=== PATIENT | male | born 1965 | race Caucasian/White ===

== ENCOUNTER 2020-06-25 11:40 | Outpatient (CLI) | payer OTHER ==
[~2020-06-25 11:40] MED LIST: LIDOCAINE 1%, 10ML ONE
== END 2020-06-25 23:59 | disposition home or self-care (01) ==
LOC: RAD 11:40
PROVIDERS: ATTEND Internal Medicine Gastroenterology
DX: R18.8 Other ascites (principal); K74.60 Unspecified cirrhosis of liver; N28.9 Disorder of kidney and ureter, unspecified
CPT/HCPCS: 49083; J3490

== ENCOUNTER 2020-07-05 09:45 | Outpatient (CLI) | payer OTHER ==
[2020-07-05] MEDS ORDERED: LIDOCAINE 1%, 10ML ONE (09:48)
== END 2020-07-05 23:59 | disposition home or self-care (01) ==
LOC: RAD 09:45
PROVIDERS: ATTEND Internal Medicine Gastroenterology
DX: R18.8 Other ascites (principal); K74.60 Unspecified cirrhosis of liver; N28.9 Disorder of kidney and ureter, unspecified
CPT/HCPCS: 49083; J3490

== ENCOUNTER 2020-07-12 11:36 | Outpatient (CLI) | payer OTHER ==
[2020-07-12] MEDS ORDERED: ALBUMIN HUMAN 25%, 25GM/100ML ONE (12:02)
[2020-07-12] MEDS ORDERED: LIDOCAINE 1%, 2ML ONE (12:02)
== END 2020-07-12 23:59 | disposition home or self-care (01) ==
LOC: RAD 11:36
PROVIDERS: ATTEND Internal Medicine Gastroenterology
DX: R18.8 Other ascites (principal); K74.60 Unspecified cirrhosis of liver; N28.9 Disorder of kidney and ureter, unspecified
CPT/HCPCS: 49083; J3490; P9047

== ENCOUNTER 2020-07-19 13:33 | Outpatient (CLI) | payer OTHER ==
[2020-07-19] MEDS ORDERED: LIDOCAINE 1%, 10ML ONE (13:35)
[2020-07-19] MEDS ORDERED: ALBUMIN HUMAN 25%, 25GM/100ML ONE (16:23)
== END 2020-07-19 23:59 | disposition home or self-care (01) ==
LOC: RAD 13:33
PROVIDERS: ATTEND Internal Medicine Gastroenterology
DX: R18.8 Other ascites (principal); K74.60 Unspecified cirrhosis of liver; N28.9 Disorder of kidney and ureter, unspecified
CPT/HCPCS: 49083; J3490; P9047

== ENCOUNTER 2020-07-28 08:59 | Outpatient (CLI) | payer OTHER ==
[2020-07-28] MEDS ORDERED: LIDOCAINE 1%, 10ML ONE (09:09)
== END 2020-07-28 23:59 | disposition home or self-care (01) ==
LOC: RAD 08:59
PROVIDERS: ATTEND Internal Medicine Gastroenterology
DX: K70.31 Alcoholic cirrhosis of liver with ascites (principal); N28.9 Disorder of kidney and ureter, unspecified
CPT/HCPCS: 49083; J3490

== ENCOUNTER 2020-08-06 09:19 | Outpatient (CLI) | payer OTHER | END 2020-08-06 23:59 | disposition home or self-care (01) | LOC: RAD 09:19 | PROVIDERS: ATTEND Internal Medicine Gastroenterology | DX: R18.8 Other ascites (principal); K74.60 Unspecified cirrhosis of liver | CPT/HCPCS: 49083; J3490 ==

== ENCOUNTER 2020-08-13 11:39 | Outpatient (CLI) | payer OTHER ==
[2020-08-13] MEDS ORDERED: LIDOCAINE 1%, 10ML ONE (11:50)
== END 2020-08-13 23:59 | disposition home or self-care (01) ==
LOC: RAD 11:39
PROVIDERS: ATTEND Internal Medicine Gastroenterology
DX: R18.8 Other ascites (principal); K74.60 Unspecified cirrhosis of liver; N28.9 Disorder of kidney and ureter, unspecified
CPT/HCPCS: 49083; J3490

== ENCOUNTER → 2020-08-25 | Outpatient (CLI) | payer OTHER | END | disposition home or self-care (01) | LOC: RAD 13:12 | PROVIDERS: ATTEND Internal Medicine Gastroenterology | DX: R18.8 Other ascites (principal); K74.60 Unspecified cirrhosis of liver; N28.9 Disorder of kidney and ureter, unspecified | CPT/HCPCS: 49083; J3490 ==

== ENCOUNTER 2020-09-02 13:22 | Outpatient (CLI) | payer OTHER ==
[2020-09-02] MEDS ORDERED: LIDOCAINE 1%, 10ML ONE (13:32)
== END 2020-09-02 23:59 | disposition home or self-care (01) ==
LOC: RAD 13:22
PROVIDERS: ATTEND Internal Medicine Gastroenterology
DX: K70.31 Alcoholic cirrhosis of liver with ascites (principal)
CPT/HCPCS: 49083; J3490

== ENCOUNTER → 2020-09-13 | Outpatient (CLI) | payer OTHER | END | disposition home or self-care (01) | LOC: RAD 11:55 | PROVIDERS: ATTEND Internal Medicine Gastroenterology | DX: R18.8 Other ascites (principal); K74.60 Unspecified cirrhosis of liver; N28.9 Disorder of kidney and ureter, unspecified | CPT/HCPCS: 49083; J3490 ==

== ENCOUNTER 2020-09-21 12:00 | Outpatient (CLI) | payer OTHER ==
[2020-09-21] MEDS ORDERED: LIDOCAINE 1%, 10ML ONE (12:16)
== END 2020-09-21 23:59 | disposition home or self-care (01) ==
LOC: RAD 12:00
PROVIDERS: ATTEND Internal Medicine Gastroenterology
DX: R18.8 Other ascites (principal); K74.60 Unspecified cirrhosis of liver
CPT/HCPCS: 49083; J3490

== ENCOUNTER 2020-10-01 13:02 | Outpatient (CLI) | payer OTHER ==
[2020-10-01] MEDS ORDERED: LIDOCAINE 1%, 10ML ONE (13:14)
== END 2020-10-01 23:59 | disposition home or self-care (01) ==
LOC: RAD 13:02
PROVIDERS: ATTEND Internal Medicine Gastroenterology
DX: R18.8 Other ascites (principal); K74.60 Unspecified cirrhosis of liver
CPT/HCPCS: 49083; J3490

== ENCOUNTER 2020-10-12 12:27 | Outpatient (CLI) | payer OTHER ==
[2020-10-12] MEDS ORDERED: LIDOCAINE 1%, 10ML ONE (12:38)
== END 2020-10-12 23:59 | disposition home or self-care (01) ==
LOC: RAD 12:27
PROVIDERS: ATTEND Internal Medicine Gastroenterology
DX: R18.8 Other ascites (principal); K74.60 Unspecified cirrhosis of liver; N28.9 Disorder of kidney and ureter, unspecified
CPT/HCPCS: 49083; J3490

== ENCOUNTER 2020-10-21 09:27 | Outpatient (CLI) | payer OTHER ==
[2020-10-21] MEDS ORDERED: LIDOCAINE 1%, 10ML ONE (09:33)
== END 2020-10-21 23:59 | disposition home or self-care (01) ==
LOC: RAD 09:27
PROVIDERS: ATTEND Internal Medicine Gastroenterology
DX: R18.8 Other ascites (principal); K74.60 Unspecified cirrhosis of liver
CPT/HCPCS: 49083; J3490

== ENCOUNTER 2020-10-28 13:04 | Outpatient (CLI) | payer OTHER ==
[2020-10-28] MEDS ORDERED: LIDOCAINE 1%, 10ML ONE (13:27)
== END 2020-10-28 23:59 | disposition home or self-care (01) ==
LOC: RAD 13:04
PROVIDERS: ATTEND Internal Medicine Gastroenterology
DX: R18.8 Other ascites (principal); K74.60 Unspecified cirrhosis of liver; N28.9 Disorder of kidney and ureter, unspecified
CPT/HCPCS: 49083; J3490

== ENCOUNTER 2020-11-04 13:50 | Outpatient (CLI) | payer OTHER ==
[2020-11-04] MEDS ORDERED: LIDOCAINE 1%, 10ML ONE (13:52)
== END 2020-11-04 23:59 | disposition home or self-care (01) ==
LOC: RAD 13:50
PROVIDERS: ATTEND Internal Medicine Gastroenterology
DX: R18.8 Other ascites (principal); K74.60 Unspecified cirrhosis of liver; N28.9 Disorder of kidney and ureter, unspecified
CPT/HCPCS: 49083; J3490

== ENCOUNTER 2020-11-11 13:52 | Outpatient (CLI) | payer OTHER | END 2020-11-11 23:59 | disposition home or self-care (01) | LOC: RAD 13:52 | PROVIDERS: ATTEND Internal Medicine Gastroenterology | DX: K74.60 Unspecified cirrhosis of liver (principal); N28.9 Disorder of kidney and ureter, unspecified | CPT/HCPCS: 49083; J3490 ==

== ENCOUNTER 2020-11-19 08:38 | Outpatient (CLI) | payer OTHER ==
[2020-11-19] MEDS ORDERED: LIDOCAINE 1%, 10ML ONE (09:17)
== END 2020-11-19 23:59 | disposition home or self-care (01) ==
LOC: RAD 08:38
PROVIDERS: ATTEND Internal Medicine Gastroenterology
DX: R18.8 Other ascites (principal); K74.60 Unspecified cirrhosis of liver
CPT/HCPCS: 49083; J3490

== ENCOUNTER → 2020-11-26 | Outpatient (CLI) | payer OTHER | END | disposition home or self-care (01) | LOC: RAD 13:19 | PROVIDERS: ATTEND Internal Medicine Gastroenterology | DX: R18.8 Other ascites (principal); K74.60 Unspecified cirrhosis of liver | CPT/HCPCS: 49083; J3490 ==

== ENCOUNTER → 2020-12-03 | Outpatient (CLI) | payer OTHER | END | disposition home or self-care (01) | LOC: RAD 11:21 | PROVIDERS: ATTEND Internal Medicine Gastroenterology | DX: R18.8 Other ascites (principal); K74.60 Unspecified cirrhosis of liver; N28.9 Disorder of kidney and ureter, unspecified | CPT/HCPCS: 49083; J3490 ==

== ENCOUNTER → 2020-12-10 | Outpatient (CLI) | payer OTHER ==
[~2020-12-10] MED LIST changes: +ALBUMIN HUMAN 25%, 25GM/100ML ONE
== END | disposition home or self-care (01) ==
LOC: RAD 10:29
PROVIDERS: ATTEND Internal Medicine Gastroenterology
DX: R18.8 Other ascites (principal); K74.60 Unspecified cirrhosis of liver
CPT/HCPCS: 49083; J3490; P9047

== ENCOUNTER → 2020-12-17 | Outpatient (CLI) | payer OTHER ==
[~2020-12-17] MED LIST changes: -LIDOCAINE 1%, 10ML ONE; +LIDOCAINE 1%, 20ML ONE
== END | disposition home or self-care (01) ==
LOC: RAD 12:26
PROVIDERS: ATTEND Internal Medicine Gastroenterology
DX: R18.8 Other ascites (principal); K74.60 Unspecified cirrhosis of liver
CPT/HCPCS: 49083; J3490; P9047

== ENCOUNTER → 2020-12-24 | Outpatient (CLI) | payer OTHER ==
[~2020-12-24] MED LIST changes: +LIDOCAINE 1%, 10ML ONE; -LIDOCAINE 1%, 20ML ONE
== END | disposition home or self-care (01) ==
LOC: RAD 09:12
PROVIDERS: ATTEND Internal Medicine Gastroenterology
DX: R18.8 Other ascites (principal); K74.60 Unspecified cirrhosis of liver; N28.9 Disorder of kidney and ureter, unspecified
CPT/HCPCS: 49083; J3490; P9047

== ENCOUNTER 2021-01-04 11:40 | Outpatient (CLI) | payer OTHER ==
[2021-01-04] MEDS ORDERED: LIDOCAINE-MPF 1%, 5ML ONE (12:16)
[2021-01-04] MEDS ORDERED: ALBUMIN HUMAN 25%, 25GM/100ML ONE (14:45)
== END 2021-01-04 23:59 | disposition home or self-care (01) ==
LOC: RAD 11:40
PROVIDERS: ATTEND Internal Medicine Gastroenterology
DX: R18.8 Other ascites (principal); K74.60 Unspecified cirrhosis of liver; N28.9 Disorder of kidney and ureter, unspecified
CPT/HCPCS: 49083; P9047

== ENCOUNTER 2021-01-14 14:33 | Outpatient (CLI) | payer OTHER ==
[2021-01-14] MEDS ORDERED: LIDOCAINE-MPF 1%, 5ML ONE (14:58)
[2021-01-14] MEDS ORDERED: ALBUMIN HUMAN 25%, 25GM/100ML ONE (15:03)
== END 2021-01-14 23:59 | disposition home or self-care (01) ==
LOC: RAD 14:33
PROVIDERS: ATTEND Internal Medicine Gastroenterology
DX: K74.60 Unspecified cirrhosis of liver (principal); N28.9 Disorder of kidney and ureter, unspecified; K76.0 Fatty (change of) liver, not elsewhere classified
CPT/HCPCS: 49083; P9047

== ENCOUNTER → 2021-01-27 | Outpatient (CLI) | payer OTHER ==
[~2021-01-27] MED LIST changes: -LIDOCAINE 1%, 10ML ONE; +LIDOCAINE-MPF 1%, 5ML ONE
== END | disposition home or self-care (01) ==
LOC: RAD 13:27
PROVIDERS: ATTEND Internal Medicine Gastroenterology
DX: R18.8 Other ascites (principal); K74.60 Unspecified cirrhosis of liver; K76.0 Fatty (change of) liver, not elsewhere classified; N28.9 Disorder of kidney and ureter, unspecified
CPT/HCPCS: 49083; P9047

== ENCOUNTER 2021-02-22 11:38 | Outpatient (CLI) | payer OTHER ==
[~2021-02-22 11:38] MED LIST changes: +LIDOCAINE 1%, 10ML ONE; -LIDOCAINE-MPF 1%, 5ML ONE
== END 2021-02-22 23:59 | disposition home or self-care (01) ==
LOC: RAD 11:38
PROVIDERS: ATTEND Internal Medicine Gastroenterology
DX: R18.8 Other ascites (principal); K74.60 Unspecified cirrhosis of liver; N28.9 Disorder of kidney and ureter, unspecified
CPT/HCPCS: 49083; J3490; P9047

== ENCOUNTER 2021-03-16 08:40 | Outpatient (CLI) | payer OTHER ==
[2021-03-16] MEDS ORDERED: LIDOCAINE 1%, 10ML ONE (08:47)
== END 2021-03-16 23:59 | disposition home or self-care (01) ==
LOC: RAD 08:40
PROVIDERS: ATTEND Internal Medicine Gastroenterology
DX: R18.8 Other ascites (principal); K74.60 Unspecified cirrhosis of liver; K76.0 Fatty (change of) liver, not elsewhere classified; N28.9 Disorder of kidney and ureter, unspecified
CPT/HCPCS: 49083; J3490